=== PATIENT | female | born 1955 | race Caucasian/White ===

== ENCOUNTER 2024-11-14 06:24 | Day surgery (SDC) | payer OTHER, SELFPAY | END 2024-11-14 13:13 | disposition home or self-care (01) | LOC: GI 06:24 | PROVIDERS: ATTENDING PHYSICIAN Internal Medicine | DX: Z12.11 Encounter for screening for malignant neoplasm of colon (principal); D12.2 Benign neoplasm of ascending colon; K63.5 Polyp of colon; Z80.0 Family history of malignant neoplasm of digestive organs | CPT/HCPCS: 45385; 88305 ==